=== PATIENT | male | born 1985 | race Caucasian/White ===

== ENCOUNTER 2021-08-23 00:50 | Emergency (ER) | payer BC, OTHER ==
[~2021-08-23] VITALS: Ht 182.9 cm; Wt 61.2 kg
--- NOTE | 2021-08-23 01:00 | NUR ---
Dr. Alcantar at bedside for MSE.
[2021-08-23] MEDS ORDERED: LORA-259 PO (01:14)
[2021-08-23] MEDS ORDERED: NALO4SPR NS (01:14)
[2021-08-23] MEDS ORDERED: OXYCODONE/APAP 5-325 MG TABLET ONE (01:14)
[2021-08-23] MEDS ORDERED: LORAZEPAM 1 MG TABLET ONE (01:14)
[2021-08-23] MEDS ORDERED: HYDR-3980 PO (01:14)
[2021-08-23] MEDS ORDERED: LORAZEPAM 0.5 MG TABLET PO ONE (01:15)
[2021-08-23] MEDS ORDERED: OXYCODONE/APAP 5-325 MG TABLET PO ONE (01:15)
[2021-08-23 01:31] VITALS: BP 118/54
--- NOTE | 2021-08-23 01:31 | NUR ---
Patient discharged to home in stable condition. Written and verbal after care instructions given. Patient verbalizes understanding of instructions. Stressed follow up or return to ER for worsening s/s. Patient out of ER with steady gait, no acute signs of distress, VSS, all belongings taken, instructed not to drive, will be driven home by friend via private vehicle.
== END 2021-08-23 01:32 | disposition home or self-care (01) ==
LOC: ER 00:54
DX: M62.838 Other muscle spasm (principal)
CPT/HCPCS: A4663